=== PATIENT | male | born 1975 | race Caucasian/White ===

== ENCOUNTER 2016-11-04 08:08 | Emergency (ER) | payer SELFPAY ==
[~2016-11-04] VITALS: Ht 188 cm; Wt 91.2 kg
[2016-11-04] MEDS ORDERED: OMEP10CA4 PO (08:18)
[2016-11-04] MEDS ORDERED: DICY10CA3 PO (08:18)
[2016-11-04] MEDS ORDERED: FAMOTIDINE 20 MG/2 ML ONE (08:27)
[2016-11-04] MEDS ORDERED: MORPHINE SULFATE 4 MG/ML, 1ML ONE ×2 (08:27→09:05)
[2016-11-04] MEDS ORDERED: MAALOX/HYOSCYAMINE/LIDOCAINE 45 ML BOTTLE ONE (08:27)
[2016-11-04] MEDS ORDERED: ONDANSETRON 2MG/ML, 2ML ONE (08:27)
[2016-11-04] MEDS ORDERED: SODIUM CHLORIDE FLUSH 10ML SYR IVF ONE (08:30)
[2016-11-04] MEDS ORDERED: SODIUM CHLORIDE 0.9% 1,000ML IVBOLUS ONE (08:30)
[2016-11-04] MEDS ORDERED: ONDANSETRON 2MG/ML, 2ML IVPush ONE (08:30)
[2016-11-04] MEDS ORDERED: FAMOTIDINE 20 MG/2 ML IVP ONE (08:30)
[2016-11-04] MEDS ORDERED: MAALOX/HYOSCYAMINE/LIDOCAINE 45 ML BOTTLE PO ONE (08:30)
[2016-11-04] MEDS: MORPHINE SULFATE 4 MG/ML, 1ML IVPush PRN ×2 (08:31→09:07)
[2016-11-04] MEDS ORDERED: PLEASE ENTER ALLERGIES MC SCH ×2 (09:00)
[2016-11-04 09:06] LABS: BLOOD UREA NITROGEN 26 mg/dL (7-18)
[2016-11-04 09:10] LABS: ASPARTATE AMINO TRANSFERASE 19 U/L (15-37)
[2016-11-04 10:08] VITALS: BP 138/98
== END 2016-11-04 10:10 | disposition home or self-care (01) ==
LOC: ED 10:04
DX: K29.00 Acute gastritis without bleeding (principal); R10.13 Epigastric pain; K21.9 Gastro-esophageal reflux disease without esophagitis; F17.210 Nicotine dependence, cigarettes, uncomplicated
CPT/HCPCS: 36415; 76700; 80053; 83690; 85025; 96361; 96374; 96375; 96376; 99285; J2405; J7030; S0028

== ENCOUNTER 2018-06-12 09:16 | Emergency (ER) | payer MEDICAID, OTHER ==
[~2018-06-12] VITALS: Ht 188 cm; Wt 87.9 kg
[~2018-06-12 09:16] MED LIST: ASPI81TA45 PO; ATOR-2 PO; CARV3.1212 PO; DICY10CA3 PO; OMEP10CA4 PO; ONDA4TAB10 PO; TICA90TA PO
[2018-06-12] MEDS ORDERED: ONDANSETRON ODT 4 MG ONE (10:21)
--- NOTE | 2018-06-12 10:23 | NUR ---
PT MED NOTED. WATER AT BEDSIDE. PT INSTRUCTED TO WAIT 15MIN THEN BEGIN TAKING SMALL SIPS OF WATER.
[2018-06-12] MEDS ORDERED: ONDANSETRON ODT 4 MG PO ONE (10:30)
[2018-06-12 10:32] LABS: MEAN CORPUSCULAR HEMOGLOBIN 30.2 pg (27.5-34.5); MEAN CORPUSCULAR HGB CONC 33.1 g/dL (33.2-36.2); MEAN CORPUSCULAR VOLUME 91.3 fL (81-97); MEAN PLATELET VOLUME 8.4 fL (7.4-10.4); PLATELET COUNT 510 x10^3/uL (130-400); RED BLOOD COUNT 6.15 x10^6/uL (4.38-5.82); RED CELL DISTRIBUTION WIDTH 15.3 % (9.4-14.8)
[2018-06-12 10:38] LABS: ALANINE AMINOTRANSFERASE 53 U/L (12-78); ALBUMIN 5.3 g/dL (3.4-5.0); ANION GAP 10 mmol/L (5-15); CALCIUM 10.8 mg/dL (8.5-10.1); CHLORIDE 106 mmol/L (98-107); CREATININE 1.65 mg/dL (0.7-1.3)
[2018-06-12 10:41] LABS: ALKALINE PHOSPHATASE 125 U/L (45-117); BILIRUBIN,TOTAL 2.3 mg/dL (0.2-1.0); TOTAL PROTEIN 9.7 g/dL (6.4-8.2)
[2018-06-12 10:56] LABS: MD YES
[2018-06-12 10:57] LABS: BAND#(MANUAL) 2.04 x10^3/uL; BANDS%(MANUAL) 10 % (0-7); LYMPH#(MANUAL) 2.04 x10^3/uL (1-3.4); LYMPHS% (MANUAL) 10 % (22-44); MONOS#(MANUAL) 1.22 x10^3/uL (0.3-2.7); MONOS% (MANUAL) 6 % (2-9); SEGS% (MANUAL) 74 % (42-75)
[2018-06-12 11:00] LABS: <PLATELET ESTIMATE> INCREASED; <PLT MORPHOLOGY> NORMAL PLT MORPH; <RBC MORPHOLOGY> NORMAL
--- NOTE | 2018-06-12 11:04 | NUR ---
PT TOLLERATING PO FLUIDS. LABS RESULTS POSTED, PT UNABLE TO PROVIDE URINE SAMPLE. CHART UP FOR RECHECK
[2018-06-12] MEDS ORDERED: ONDANSETRON 2MG/ML, 2ML IVPush ONE (11:30)
[2018-06-12] MEDS ORDERED: SODIUM CHLORIDE 0.9% 1,000ML IVBOLUS ONE (11:30)
[2018-06-12] MEDS ORDERED: FAMOTIDINE 20 MG/2 ML IVP ONE (11:30)
--- NOTE | 2018-06-12 12:16 | NUR ---
Recieved report from SAMUEL Patiño. All questions answered. Assuming care of pt. Pt resting on gurney having just returned from imaging. NADN. No vomitting at this time. Pt requesting water. Provided water to pt.
[2018-06-12] MEDS ORDERED: FAMOTIDINE 20 MG/2 ML ONE (12:24)
[2018-06-12] MEDS ORDERED: ONDANSETRON 2MG/ML, 2ML ONE (12:24)
--- NOTE | 2018-06-12 12:39 | NUR ---
Pt aware of need of urine sample. Pt states unable to provide sample at this time. Pt provided urinal for ua. Pt has IV fluids infusing and provided pt medication per EMAR. Pt states appreciation.
--- NOTE | 2018-06-12 13:12 | NUR ---
Patient given discharge instructions and they have confirmed that they understand the instructions. Patient ambulatory with steady gait. Pt left with all personal belongings, discharge paperwork, and all personal belongings.
[2018-06-12 13:13] VITALS: BP 128/86
== END 2018-06-12 13:16 | disposition home or self-care (01) ==
LOC: ED 11:33
DX: E86.0 Dehydration (principal); K29.00 Acute gastritis without bleeding; I10 Essential (primary) hypertension; E78.5 Hyperlipidemia, unspecified; K21.9 Gastro-esophageal reflux disease without esophagitis; R19.7 Diarrhea, unspecified; R11.2 Nausea with vomiting, unspecified
CPT/HCPCS: 36415; 74176; 80053; 85025; 96361; 96374; 96375; 99284; J2405; J3490; J7030; Q0162

== ENCOUNTER 2019-11-25 11:17 | Inpatient (IN) | payer OTHER ==
[~2019-11-25] VITALS: Ht 188 cm; Wt 95.4 kg
[~2019-11-25 11:17] MED LIST changes: -OMEP10CA4 PO; +OMEP10CA5 PO
--- NOTE | 2019-11-25 11:44 | NUR ---
pt to ed from home. co abd pain lower "discomfort" w nausea and vomiting started 0700. hx cyclic vomiting and marijuana abuse. also hx colitis. denies diarrhea. provider in room. call brady. as
[2019-11-25] MEDS ORDERED: ONDANSETRON 2MG/ML, 2ML ONE ×2 (11:48→19:39)
[2019-11-25] MEDS ORDERED: FAMOTIDINE 20 MG/2 ML ONE (11:49)
[2019-11-25] MEDS ORDERED: ONDANSETRON 2MG/ML, 2ML IVPush ONE (12:00)
[2019-11-25] MEDS ORDERED: FAMOTIDINE 20 MG/2 ML IVPush ONE (12:00)
[2019-11-25] MEDS ORDERED: SODIUM CHLORIDE 0.9% 1,000ML IVBOLUS ONE (12:00)
--- NOTE | 2019-11-25 12:10 | NUR ---
piv est meds per mar ivf infusing given blankets aware of need for ua. as
[2019-11-25 12:18] LABS: BASOPHILS # (AUTO) 0.02 x10^3/uL (0-0.1); BASOPHILS % (AUTO) 0 % (0-1); EOSINOPHILS % (AUTO) 0 % (1-7); LYMPHOCYTES # (AUTO) 0.85 x10^3/uL (1-3.4); LYMPHOCYTES % (AUTO) 7 % (22-44); MD NO; MEAN CORPUSCULAR HEMOGLOBIN 29.7 pg (27.5-34.5); MEAN CORPUSCULAR HGB CONC 33.7 g/dL (33.2-36.2); MEAN CORPUSCULAR VOLUME 88.2 fL (81-97); MEAN PLATELET VOLUME 7.8 fL (7.4-10.4); MONOCYTES # (AUTO) 0.31 x10^3/uL (0.2-0.8); MONOCYTES % (AUTO) 3 % (2-9); NEUTROPHILS # (AUTO) 10.36 x10^3/uL (1.8-6.8); NEUTROPHILS % (AUTO) 90 % (42-75); PLATELET COUNT 405 x10^3/uL (130-400); RED BLOOD COUNT 5.84 x10^6/uL (4.38-5.82); RED CELL DISTRIBUTION WIDTH 15.3 % (9.4-14.8)
[2019-11-25 12:34] LABS: ALANINE AMINOTRANSFERASE 50 U/L (12-78); ALBUMIN 4.5 g/dL (3.4-5.0); ANION GAP 11 mmol/L (5-15); CALCIUM 9.7 mg/dL (8.5-10.1); CHLORIDE 112 mmol/L (98-107)
[2019-11-25 12:37] LABS: ALKALINE PHOSPHATASE 93 U/L (45-117); BILIRUBIN,TOTAL 0.7 mg/dL (0.2-1.0); TOTAL PROTEIN 8.5 g/dL (6.4-8.2)
--- NOTE | 2019-11-25 12:40 | NUR ---
pt c/o chest tightness. denies sob. non reproducible. sts could be reflux. ekg in progress, pa made aware, trop added on. pt calm, vss. as
[2019-11-25 12:57] LABS: TROPONIN I 0.016 ng/mL (0.000-0.045)
--- NOTE | 2019-11-25 12:57 | NUR ---
EKG CHANGES PT C/O CP DORCAS IN ROOM FOR EVAL STEMI ALERT.
--- NOTE | 2019-11-25 12:58 | NUR ---
RELIEF CHARGE: CODE CARDIAC CALLED DUE TO EKG CHANGES
[2019-11-25] MEDS ORDERED: NITROGLYCERIN SINGLE TAB 0.4 MG SL ONE ×2 (12:59→13:10)
[2019-11-25] MEDS ORDERED: ASPIRIN 81 MG TABLET CHEW ONE (12:59)
[2019-11-25] MEDS ORDERED: MORPHINE SULFATE 4 MG/ML, 1ML IVPush PRN (13:00)
--- NOTE | 2019-11-25 13:01 | NUR ---
162 ASA/.4 NITRO PER VERBAL ORDER BY SHAWN.
--- NOTE | 2019-11-25 13:03 | NUR ---
13[address] ghosh spoke with dr lambert and dr rivera 1302 sanitation laborer called in.
--- NOTE | 2019-11-25 13:15 | NUR ---
2ND NITRO AT 1311.
--- NOTE | 2019-11-25 13:16 | NUR ---
3RD NITRO 1316.
--- NOTE | 2019-11-25 13:16 | NUR ---
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
--- NOTE | 2019-11-25 13:21 | NUR ---
PT REPORTS NO CHANGE IN CHEST PAIN LEVEL AFTER NITRO.
--- NOTE | 2019-11-25 13:27 | NUR ---
CHAVIS AT BEDSIDE FOR EVAL.
[2019-11-25] MEDS ORDERED: ASPIRIN 81 MG TABLET CHEW PO ONE (13:30)
[2019-11-25] MEDS ORDERED: LIDOCAINE 2%, 20ML ONE (13:30)
[2019-11-25] MEDS ORDERED: FENTANYL PF 100 MCG/2ML ONE (13:30)
[2019-11-25] MEDS ORDERED: NITROGLYCERIN SINGLE TAB 0.4 MG SL PRN (13:30)
[2019-11-25] MEDS ORDERED: HEPARIN 1,000 UNITS/ML, 10ML ONE (13:30)
[2019-11-25] MEDS ORDERED: VERAPAMIL 2.5 MG/ML, 2ML ONE (13:30)
[2019-11-25] MEDS ORDERED: BIVALIRUDIN 250 MG ONE (13:30)
[2019-11-25] MEDS ORDERED: TICAGRELOR 90 MG TABLET ONE (13:30)
[2019-11-25] MEDS ORDERED: MIDAZOLAM 1 MG/ML, 5ML ONE (13:30)
--- NOTE | 2019-11-25 13:46 | NUR ---
pt transported to [facility] w/ tech/rn/ccu rn. belongings w/ pt. no relief from nitro. bp stable. care transferred. as
[2019-11-25] MEDS ORDERED: BIVALIRUDIN 250 MG in SODIUM CHLORIDE 0.9% 50 ML IV SCH (14:20)
[2019-11-25] MEDS ORDERED: SODIUM CHLORIDE 0.9% 1,000 ML IV SCH (14:20)
[2019-11-25] MEDS ORDERED: ACETAMINOPHEN 325 MG TABLET PO PRN (14:30)
[2019-11-25] MEDS: ATORVASTATIN 80 MG TABLET PO SCH ×2 (15:24→20:55)
[2019-11-25] MEDS: ONDANSETRON 2MG/ML, 2ML IVPush PRN (19:42)
[2019-11-25] MEDS: TICAGRELOR 90 MG TABLET PO SCH (20:54)
[2019-11-25] MEDS ORDERED: CALCIUM CARBONATE 500 MG TAB.CHEW PO PRN (23:00)
[2019-11-25 23:04] LABS: MICROSCOPIC INDICATED
[2019-11-26] MEDS: ZOLPIDEM 5MG TABLET PO PRN (02:18)
[2019-11-26 04:23] VITALS: BP 124/86
[2019-11-26 04:53] LABS: ANION GAP 7 mmol/L (5-15); CALCIUM 8.4 mg/dL (8.5-10.1); CHLORIDE 110 mmol/L (98-107); CREATININE 1.03 mg/dL (0.7-1.3)
[2019-11-26] MEDS: METOPROLOL SUCCINATE 25 MG TAB.ER.24H PO SCH (06:03)
[2019-11-26] MEDS: TICAGRELOR 90 MG TABLET PO SCH ×2 (07:48→20:56)
[2019-11-26] MEDS: ASPIRIN 81 MG TABLET EC PO SCH (07:48)
[2019-11-26 12:02] VITALS: BP 144/90
[2019-11-26 20:54] VITALS: BP 131/84
[2019-11-26] MEDS: ATORVASTATIN 80 MG TABLET PO SCH (20:56)
[2019-11-27 00:47] VITALS: BP 115/75
[2019-11-27] MEDS: ZOLPIDEM 5MG TABLET PO PRN ×2 (00:50→21:29)
[2019-11-27 06:00] VITALS: BP 129/86
[2019-11-27] MEDS: METOPROLOL SUCCINATE 25 MG TAB.ER.24H PO SCH (06:01)
[2019-11-27 08:26] VITALS: BP 170/91
[2019-11-27] MEDS: ONDANSETRON 2MG/ML, 2ML IVPush PRN (08:57)
[2019-11-27] MEDS: TICAGRELOR 90 MG TABLET PO SCH ×2 (09:00→21:29)
[2019-11-27] MEDS: ASPIRIN 81 MG TABLET EC PO SCH (09:00)
[2019-11-27] MEDS ORDERED: MIDAZOLAM 1 MG/ML, 5ML ONE (09:15)
[2019-11-27] MEDS ORDERED: LIDOCAINE-MPF 1%, 5ML ONE (09:15)
[2019-11-27] MEDS ORDERED: VERAPAMIL 2.5 MG/ML, 2ML ONE (09:15)
[2019-11-27] MEDS ORDERED: FENTANYL PF 100 MCG/2ML ONE (09:15)
[2019-11-27] MEDS ORDERED: HEPARIN 1,000 UNITS/ML, 10ML ONE (09:15)
[2019-11-27] MEDS ORDERED: BIVALIRUDIN 250 MG ONE (09:15)
[2019-11-27] MEDS ORDERED: TICAGRELOR 90 MG TABLET ONE (09:36)
[2019-11-27] MEDS: AMLODIPINE 2.5 MG TABLET PO SCH (10:55)
[2019-11-27] MEDS: OMEPRAZOLE 20 MG CAPSULE.DR PO SCH ×2 (10:55→16:32)
[2019-11-27 10:56] VITALS: BP 145/90
[2019-11-27] MEDS: SODIUM CHLORIDE 0.9% 1,000 ML IV SCH ×2 (10:56→21:30)
[2019-11-27] MEDS ORDERED: ISOSORBIDE MONONITRATE ER 30 MG TABLET PO SCH (11:00)
[2019-11-27 12:37] VITALS: BP 143/87
[2019-11-27] MEDS ORDERED: POTASSIUM CHLORIDE 20 MEQ TAB.ER.PRT PO ONE (15:30)
[2019-11-27 21:15] VITALS: BP 118/83
[2019-11-27] MEDS: ATORVASTATIN 80 MG TABLET PO SCH (21:29)
[2019-11-28] MEDS: SODIUM CHLORIDE 0.9% 1,000 ML IV SCH ×2 (00:56→09:55)
[2019-11-28 04:00] VITALS: BP 107/71
[2019-11-28] MEDS: OMEPRAZOLE 20 MG CAPSULE.DR PO SCH (05:12)
[2019-11-28] MEDS: METOPROLOL SUCCINATE 25 MG TAB.ER.24H PO SCH (05:12)
[2019-11-28 06:00] LABS: ANION GAP 9 mmol/L (5-15); CALCIUM 8.4 mg/dL (8.5-10.1); CHLORIDE 108 mmol/L (98-107); CREATININE 1.01 mg/dL (0.7-1.3)
[2019-11-28 06:55] VITALS: BP 110/71
[2019-11-28] MEDS ORDERED: AMLO2.5T5 PO (08:15)
[2019-11-28] MEDS ORDERED: METO25TA91 PO (08:15)
[2019-11-28] MEDS: ASPIRIN 81 MG TABLET EC PO SCH (08:55)
[2019-11-28] MEDS: AMLODIPINE 2.5 MG TABLET PO SCH (08:55)
[2019-11-28] MEDS: TICAGRELOR 90 MG TABLET PO SCH (08:55)
== END 2019-11-28 10:22 | DRG 247 ==
LOC: ED 12:11 → EDIP 14:20 → CCU 14:40 → 5SO 11-26 11:33 → DCLOUNGE 11-28 10:14
PROVIDERS: ADMIT Internal Medicine Cardiovascular Disease; ATTEND Internal Medicine
PROC: 4A023N7 Measurement of Cardiac Sampling and Pressure, Left Heart, Percutaneous Approach (ICD-10-PCS; principal; 2019-11-23)
PROC: 027034Z Dilation of Coronary Artery, One Artery with Drug-eluting Intraluminal Device, Percutaneous Approach (ICD-10-PCS; 2019-11-23)
PROC: 02703ZZ Dilation of Coronary Artery, One Artery, Percutaneous Approach (ICD-10-PCS; 2019-11-23)
PROC: B2111ZZ Fluoroscopy of Multiple Coronary Arteries using Low Osmolar Contrast (ICD-10-PCS; 2019-11-23)
PROC: B2151ZZ Fluoroscopy of Left Heart using Low Osmolar Contrast (ICD-10-PCS; 2019-11-23)
PROC: 4A023N7 Measurement of Cardiac Sampling and Pressure, Left Heart, Percutaneous Approach (ICD-10-PCS; 2019-11-25)
PROC: B2111ZZ Fluoroscopy of Multiple Coronary Arteries using Low Osmolar Contrast (ICD-10-PCS; 2019-11-25)
PROC: B2151ZZ Fluoroscopy of Left Heart using Low Osmolar Contrast (ICD-10-PCS; 2019-11-25)
DX: I21.3 ST elevation (STEMI) myocardial infarction of unspecified site (principal); K31.1 Adult hypertrophic pyloric stenosis; I10 Essential (primary) hypertension; I25.10 Atherosclerotic heart disease of native coronary artery without angina pectoris; K21.9 Gastro-esophageal reflux disease without esophagitis; K44.9 Diaphragmatic hernia without obstruction or gangrene; F12.90 Cannabis use, unspecified, uncomplicated; Z82.49 Family history of ischemic heart disease and other diseases of the circulatory system; I25.2 Old myocardial infarction; Z87.891 Personal history of nicotine dependence; Z95.5 Presence of coronary angioplasty implant and graft
CPT/HCPCS: 36415; 93458; C9600; J3490; 71045; 80048; 80053; 81001; 83036; 83690; 83880; 84484; 85014; 85018; 85025; 87081; 87086; 93005; 93306; 99156; 99157; C1769; C1894; G0378; J0583; J1644; J2250; J2405; J3010; C1725; C1874; C1887; J7030; Q9967

== ENCOUNTER 2019-12-06 12:28 | Emergency (ER) | payer SELFPAY ==
[~2019-12-06] VITALS: Ht 188 cm; Wt 93.2 kg
[~2019-12-06 12:28] MED LIST changes: +AMLO2.5T5 PO; +METO25TA91 PO
--- NOTE | 2019-12-06 12:59 | NUR ---
Ambulatory to & from [facility] w/out incident; voided specimen provided - cloudy adrian.
[2019-12-06] MEDS ORDERED: SODIUM CHLORIDE FLUSH 10ML SYR IVF ONE (13:00)
--- NOTE | 2019-12-06 13:01 | NUR ---
PT C/O SUPRAPUBIC AREA PAIN, STARTED AT 0400 TODAY, REPORTS BLOODY URINE. + NAUSEA, BACK "DISCOMFORT". DENIES VOMITING, PAIN/BURNING W/ URINATION. WATER INTAKE TODAY: 3-4 PINTS. WAS IN ED 1-1/2 WK AGO FOR FL; STENT PLACED. NO PAIN MED TAKEN TODAY.
[2019-12-06] MEDS ORDERED: TUMS (13:07)
--- NOTE | 2019-12-06 13:10 | NUR ---
PT VOMITED 150ML.
--- NOTE | 2019-12-06 13:15 | NUR ---
BLADDER SCANNED: 80ML
[2019-12-06 13:40] LABS: BASOPHILS # (AUTO) 0.02 x10^3/uL (0-0.1); BASOPHILS % (AUTO) 0 % (0-1); EOSINOPHILS # (AUTO) 0.03 x10^3/uL (0-0.4); EOSINOPHILS % (AUTO) 0 % (1-7); LYMPHOCYTES # (AUTO) 1.15 x10^3/uL (1-3.4); LYMPHOCYTES % (AUTO) 10 % (22-44); MD NO; MEAN CORPUSCULAR HEMOGLOBIN 29.4 pg (27.5-34.5); MEAN CORPUSCULAR HGB CONC 33.2 g/dL (33.2-36.2); MEAN CORPUSCULAR VOLUME 88.7 fL (81-97); MEAN PLATELET VOLUME 7.7 fL (7.4-10.4); MONOCYTES # (AUTO) 0.54 x10^3/uL (0.2-0.8); MONOCYTES % (AUTO) 5 % (2-9); NEUTROPHILS # (AUTO) 9.41 x10^3/uL (1.8-6.8); NEUTROPHILS % (AUTO) 84 % (42-75); PLATELET COUNT 445 x10^3/uL (130-400); RED BLOOD COUNT 6.05 x10^6/uL (4.38-5.82); RED CELL DISTRIBUTION WIDTH 14.6 % (9.4-14.8)
[2019-12-06] MEDS ORDERED: KETOROLAC 30 MG/1 ML ONE (13:42)
[2019-12-06] MEDS ORDERED: ONDANSETRON 2MG/ML, 2ML ONE (13:42)
[2019-12-06 13:50] LABS: ALANINE AMINOTRANSFERASE 63 U/L (12-78); ALBUMIN 4.6 g/dL (3.4-5.0); ANION GAP 10 mmol/L (5-15); CALCIUM 9.9 mg/dL (8.5-10.1); CHLORIDE 109 mmol/L (98-107); CREATININE 1.21 mg/dL (0.7-1.3)
[2019-12-06 13:52] LABS: ALKALINE PHOSPHATASE 104 U/L (45-117); BILIRUBIN,TOTAL 0.9 mg/dL (0.2-1.0); TOTAL PROTEIN 8.9 g/dL (6.4-8.2)
[2019-12-06 13:55] LABS: MICROSCOPIC INDICATED
[2019-12-06] MEDS ORDERED: ONDANSETRON 2MG/ML, 2ML IVPush ONE (14:00)
[2019-12-06] MEDS ORDERED: KETOROLAC 30 MG/1 ML IVPush ONE (14:00)
--- NOTE | 2019-12-06 14:26 | NUR ---
ZOFRAN & TORADOL GIVEN PER EMAR
[2019-12-06 15:32] VITALS: BP 121/91
== END 2019-12-06 16:03 | disposition home or self-care (01) ==
LOC: ED 14:34
DX: N20.0 Calculus of kidney (principal); R31.9 Hematuria, unspecified; R10.9 Unspecified abdominal pain; K21.9 Gastro-esophageal reflux disease without esophagitis; I10 Essential (primary) hypertension
CPT/HCPCS: 36415; 74176; 80053; 81001; 85025; 96374; 96375; 99284; J1885; J2405